=== PATIENT | female | born 2005 | race Two or more races ===

== ENCOUNTER → 2023-05-31 | Emergency (ER) | payer SELFPAY ==
[~2023-05-31] MED LIST: NA CHLORIDE 0.9% 1,000 ML ONE
[2023-05-31 11:38] LABS: Specific Gravity 1.007 (1.005-1.030)
[2023-05-31 11:40] LABS: Hematocrit 34.7 % (36.0-45.0); Lymphocytes % 16.7 % (15.3-44.8); MCV 85.4 fL (80-100); MPV 10.1 fL (7.6-11.3); Platelets 189 thou/uL (152-406); RBC Red Blood Cell Count 4.07 M/uL (3.86-4.86)
[2023-05-31 11:43] LABS: Specific Gravity 1.006 (1.005-1.030); Urine Bacteria <20 /HPF (<20); Urine Bilirubin NEGATIVE (Negative); Urine Blood 3+ (OVER) (Negative); Urine Clarity Turbid (Clear); Urine Color Colorless (Yellow); Urine Glucose NEGATIVE (Negative); Urine Protein NEGATIVE (Negative); Urine RBC >50 /HPF (None Seen); Urine Urobilinogen Normal (Normal)
--- NOTE | 2023-05-31 12:00 | RAD REPORT ---
EXAM DESCRIPTION: US - Transvaginal OB - 05/31/2023 11:43 am CLINICAL HISTORY: Abd pain;Vaginal bleeding COMPARISON: <Comparisons> FINDINGS: There is a large oblong gestational sac within the uterus. Soft tissue structure within th e sac could be a pole measuring 9 mm (6 weeks 6 days gestational age). However, no embryonic ca rdiac is confirmed despite prolong sonographic evaluation. Internal os appears to demonstrate some ev idence of funneling. The findings suggest inevitable spontaneous . Ovaries and maternal adnexa not well assessed due to patient discomfort.
[2023-05-31 12:05] LABS: Potassium 3.2 mEq/L (3.5-5.1)
--- NOTE | 2023-05-31 13:04 | EDPHYS ---
Physician Documentation [facility] Name: Christal Thakkar Age: 18 yrs Sex: Female : 2005 Arrival Date: 05/31/2023 Time: 11:02 Bed 13 Private MD: ED Physician Jake Jung HPI: 05/31 12:59 This 18 yrs old Female presents to ER via Ambulatory with complaints of Preg-17wks rn 1day, Abdominal Pain, Vaginal Bleeding. 12:59 The patient presents with vaginal bleeding that is light, with no clots. rn 12:59 Onset: The symptoms/episode began/occurred this morning. Modifying factors: The rn symptoms are alleviated by nothing, the symptoms are aggravated by nothing. Associated signs and symptoms: Pertinent positives: vaginal bleeding, Pertinent negatives: fever. Severity of symptoms: At their worst the symptoms were mild, in the emergency department the symptoms are unchanged. The patient has not experienced similar symptoms in the past. Patient reports lower abdominal cramping and vaginal bleeding that began this morning. Patient thinks she is approximately 17 weeks by dates. Has not seen OB doctor or had ultrasound this . This is first . No trauma. No urinary symptoms.. RELOCATION SERVICES SPECIALIST: 11:14 1, Full Term 0, Premature 0, 0, Living 0, LMP 01/31/2023, mb9 unknown Historical: - Allergies: 11:13 NKA; mb9 - Home Meds: 11:13 None [Active]; mb9 - PMHx: 11:13 Herpes simplex; mb9 - PSHx: 11:13 None; mb9 - Immunization history:: Adult Immunizations up to date. - Social history:: Smoking status: Patient denies any tobacco usage or history of. - Family history:: not pertinent. - Hospitalizations: : No recent hospitalization is reported. ROS: 12:59 Constitutional: Negative for fever, chills, and weight loss, Cardiovascular: Negative rn for chest pain, palpitations, and edema, Respiratory: Negative for shortness of breath, cough, wheezing, and pleuritic chest pain, Abdomen/GI: Positive for lower abdominal cramps Back: Negative for injury and pain, : Positive for vaginal bleeding Exam: 12:59 Constitutional: This is a well developed, well nourished patient who is awake, alert, rn and in no acute distress. Cardiovascular: Regular rate and rhythm. No pulse deficits. Respiratory: No increased work of breathing, no retractions or nasal flaring. Abdomen/GI: Soft, non-tender Vital Signs: 11:12 BP 126 / 87; Pulse 105; Resp 19; Temp 98.2(O); Pulse Ox 100% ; Weight 48.08 kg; Height mb9 5 ft. 3 in. ; 12:12 BP 109 / 74; Pulse 95; Resp 16; Pulse Ox 100% on R/A; mb9 11:12 Body Mass Index 18.78 (48.08 kg, 160.02 cm) mb9 MDM: 11:16 Patient medically screened. rn 12:59 Differential diagnosis: ectopic , nonspecific abdominal pain, urinary tract rn infection, miscarriage. Data reviewed: vital signs, nurses notes, lab test result(s), radiologic studies, ultrasound, and as a result, I will discharge patient. Counseling: I had a detailed discussion with the patient and/or guardian regarding the historical points, exam findings, and any diagnostic results supporting the discharge/admit diagnosis, lab results, radiology results, the need for outpatient follow up, to return to the emergency department if symptoms worsen or persist or if there are any questions or concerns that arise at home. Special discussion: I discussed with the patient/guardian in detail that at this point there is no indication for admission to the hospital. It is understood, however, that if the symptoms persist or worsen the patient needs to return immediately for re-evaluation. ED course: Rh-, RhoGAM ordered. Possible either early and her dates are wrong or this is going to end is a miscarriage given slightly open os and new vaginal bleeding. Recommend repeat beta quant in 48 hours and reassessment. I have personally reviewed all of the results, including but not limited to blood tests and imaging deemed necessary to safely discharge this patient at this time. All results given to and printed out for patient. I personally went over all the results with the patient and answered all questions. Patient will follow-up with PCP and or specialist as discussed. Return precautions given and understood.. 05/31 11:17 Order name: Abo/rh Typing rn 05/31 12:50 Order name: Antibody Screen [facility] 05/31 12:49 Order name: Fetalscreen [facility] 05/31 12:49 Order name: Cord Rh type [facility] 05/31 11:17 Order name: Basic Metabolic Panel; Complete Time: 12:07 rn 05/31 11:17 Order name: CBC with Diff; Complete Time: 11:51 rn 05/31 11:17 Order name: Test, Urine; Complete Time: 11:51 rn 05/31 11:17 Order name: Quantitative Hcg; Complete Time: 12:07 rn 05/31 11:17 Order name: Urinalysis w/ reflexes; Complete Time: 11:51 rn 05/31 12:21 Order name: ABO/RH no charge; Complete Time: 12:22 EDMI 05/31 12:46 Order name: Bb Add On bd 05/31 12:49 Order name: Rh Typing [facility] 05/31 12:50 Order name: Rhogam [facility] 05/31 11:42 Order name: Transvaginal OB; Complete Time: 12:07 EDMI 05/31 11:17 Order name: IV Saline Lock; Complete Time: 11:17 rn 05/31 11:17 Order name: Labs collected and sent; Complete Time: 11:17 rn 05/31 11:17 Order name: NPO; Complete Time: 11:17 rn Administered Medications: 13:45 Drug: Rho D Immune Globulin IM 300 mcg IM once Route: IM; Site: left gluteus; mb9 Disposition Summary: 05/31/23 13:03 Discharge Ordered Notes: Location: Home rn Problem: new rn Symptoms: are unchanged rn Condition: Stable rn Diagnosis - Threatened rn Followup: rn - With: Private Physician - When: As needed - Reason: Recheck today's complaints, Re-evaluation by your physician Discharge Instructions: - Discharge Summary Sheet rn - Threatened Miscarriage rn - Vaginal Bleeding During , First Trimester rn Forms: - Medication Reconciliation Form rn - Thank You Letter rn - Antibiotic television journalist - Prescription Opioid Use rn - Patient Portal Instructions rn - Leadership Thank You Letter rn Signatures: Dispatcher [employer] Jake Church MD MD rn Breneman, Emily Knight RN RN mb9 Corrections: (The following items were deleted from the chart) 11:42 11:17 OB Limited+US.RAD.BRZ ordered. [facility]
--- NOTE | 2023-05-31 13:04 | ER ---
Nurse's Notes [facility] Name: Christal Thakkar Age: 18 yrs Sex: Female : 2005 Arrival Date: 05/31/2023 Time: 11:02 Bed 13 Private MD: Diagnosis: Threatened Presentation: 05/31 11:12 Chief complaint: Patient states: "Around 5 am today, I started having cramping in my mb9 lower abdomen. At 0900, I started having dark red bleeding with clots. I've gone through 2 pads since 9am. I was supposed to go to my 1st ever OB appointment yesterday and it got cancelled.". Coronavirus screen: At this time, the client does not indicate any symptoms associated with coronavirus-19. Ebola Screen: No symptoms or risks identified at this time. Initial Sepsis Screen: Does the patient meet any 2 criteria? No. Patient's initial sepsis screen is negative. Does the patient have a suspected source of infection? No. Patient's initial sepsis screen is negative. Risk Assessment: Do you want to hurt yourself or someone else? Patient reports no desire to harm self or others. Onset of symptoms was May 31, 2023. 11:12 Acuity: SAPNA 3 mb9 11:12 Method Of Arrival: Ambulatory mb9 Triage Assessment: 11:15 General: Appears in no apparent distress. Behavior is calm, cooperative. Pain: mb9 Complains of pain in abdomen Pain radiates to pelvis. EENT: No signs and/or symptoms were reported regarding the EENT system. Neuro: Nagel Agitation-Sedation Scale (RASS): 0 - Alert and Calm Level of Consciousness is awake, alert, obeys commands, Oriented to person, place, time, situation, Appropriate for age. Cardiovascular: Patient's skin is warm and dry. Rhythm is sinus tachycardia. Respiratory: Airway is patent Respiratory effort is even, unlabored, Respiratory pattern is regular, symmetrical. GI: Abdomen is flat, non-distended, Bowel sounds present X 4 quads. Abd is soft and non tender X 4 quads. GI: Patient currently denies nausea, vomiting. : Reports vaginal bleeding that is with clots, heavy flow. Derm: Skin is pink, warm \\T\\ dry. Musculoskeletal: Range of motion: intact in all extremities. GANG BOSS: 11:14 1, Full Term 0, Premature 0, 0, Living 0, LMP 01/31/2023, mb9 unknown Historical: - Allergies: 11:13 NKA; mb9 - Home Meds: 11:13 None [Active]; mb9 - PMHx: 11:13 Herpes simplex; mb9 - PSHx: 11:13 None; mb9 - Immunization history:: Adult Immunizations up to date. - Social history:: Smoking status: Patient denies any tobacco usage or history of. - Family history:: not pertinent. - Hospitalizations: : No recent hospitalization is reported. Screenin:15 [facility] ED Fall Risk Assessment (Adult) History of falling in the last 3 months, mb9 including since admission No falls in past 3 months (0 pts) Confusion or Disorientation No (0 pts) Intoxicated or Sedated No (0 pts) Impaired Gait No (0 pts) Mobility Assist Device Used No (0 pt) Altered Elimination No (0 pt) Score/Fall Risk Level 0 - 2 = Low Risk Oriented to surroundings, Maintained a safe environment, Educated pt \\T\\ family on fall prevention, incl call for assistance when getting out of bed. Abuse screen: Denies threats or abuse. Nutritional screening: No deficits noted. Tuberculosis screening: No symptoms or risk factors identified. Assessment: 11:27 Reassessment: see triage assessment. mb9 11:31 Reassessment: pt taken to ultrasound via wheelchair. mb9 12:12 Reassessment: No changes from previously documented assessment. Patient and/or family mb9 updated on plan of care and expected duration. Pain level reassessed. Patient is alert, oriented x 3, equal unlabored respirations, skin warm/dry/pink. 12:28 Reassessment: RhoGam order faxed to lab. mb9 Vital Signs: 11:12 BP 126 / 87; Pulse 105; Resp 19; Temp 98.2(O); Pulse Ox 100% ; Weight 48.08 kg; Height mb9 5 ft. 3 in. ; 12:12 BP 109 / 74; Pulse 95; Resp 16; Pulse Ox 100% on R/A; mb9 11:12 Body Mass Index 18.78 (48.08 kg, 160.02 cm) mb9 ED Course: 11:05 Patient arrived in ED. mg5 11:11 Breneman, Abigail, RN is Primary Nurse. mb9 11:11 Arm band placed on. mb9 11:13 Triage completed. mb9 11:14 Placed in gown. Bed in low position. Call light in reach. Side rails up X 1. Client mb9 placed on continuous cardiac and pulse oximetry monitoring. NIBP monitoring applied. potline monitor on. 11:16 Jake Jung MD is Attending Physician. rn 11:17 Inserted saline lock: 20 gauge in right antecubital area, using aseptic technique. bc6 Blood collected. 11:19 Abo/rh Typing Sent. bc6 11:19 Basic Metabolic Panel Sent. bc6 11:19 CBC with Diff Sent. bc6 11:19 Quantitative Hcg Sent. bc6 11:43 Transvaginal OB In Process Unspecified. EDMS 12:20 No provider procedures requiring assistance completed. IV discontinued, intact, mb9 bleeding controlled, No redness/swelling at site. Pressure dressing applied. Administered Medications: 13:45 Drug: Rho D Immune Globulin IM 300 mcg IM once Route: IM; Site: left gluteus; mb9 Medication: 11:14 VIS not applicable for this client. mb9 Outcome: 13:03 Discharge ordered by . rn 13:54 Discharged to home ambulatory, with family, mb9 13:54 Condition: stable 13:54 Discharge instructions given to patient, Instructed on discharge instructions, follow up and referral plans. Demonstrated understanding of instructions, follow-up care, 13:54 Patient left the ED. mb9 Signatures: Dispatcher [employer] EDMS Jake Jung MD MD rn Breneman, Mary Beth, RN RN mb9 Rekha Zayas 6 Vickie Trevino mg5
[2023-05-31 15:25] VITALS: BP 109/74; TEMP 98.2; O2SAT 100
== END ==
LOC: ER 11:02
DX: O20.0 Threatened abortion (principal)
CPT/HCPCS: 36415; 76817; 80048; 81001; 81025; 84702; 85025; 86850; 86900; 86901; 96372; 99285; J2790

== ENCOUNTER → 2023-06-01 | Emergency (ER) | payer SELFPAY ==
[2023-06-01 06:28] LABS: Hematocrit 32.8 % (36.0-45.0); Lymphocytes % 6.3 % (15.3-44.8); MCV 85.1 fL (80-100); MPV 9.9 fL (7.6-11.3); Platelets 182 thou/uL (152-406); RBC Red Blood Cell Count 3.86 M/uL (3.86-4.86)
[2023-06-01 07:02] LABS: Calcium Oxalate Crystals- Ur Few /HPF (None Seen); Specific Gravity 1.026 (1.005-1.030); Urine Bacteria <20 /HPF (<20); Urine Bilirubin NEGATIVE (Negative); Urine Blood 3+ (OVER) (Negative); Urine Clarity Extremely Turbid (Clear); Urine Color Yellow (Yellow); Urine Glucose NEGATIVE (Negative); Urine Mucus 3+ /HPF (None Seen); Urine Protein 1+ (Negative); Urine RBC >50 /HPF (None Seen); Urine Urobilinogen Normal (Normal); Urine pH 5.5 (5.0-7.0)
[2023-06-01 07:04] LABS: Albumin 3.9 g/dL (3.4-5.0); Potassium 3.6 mEq/L (3.5-5.1); Protein, Total 7.5 g/dL (6.4-8.2)
[2023-06-01 08:05] LABS: Blood Morphology Comment NOT SEEN (NOT SEEN); Platelet Estimate ADEQ; White Blood Cell Scan OK (OK)
--- NOTE | 2023-06-01 08:22 | RAD REPORT ---
EXAM DESCRIPTION: US - Transvaginal OB - 06/01/2023 6:32 am CLINICAL HISTORY: VAGINAL BLEEDING COMPARISON: Transvaginal OB dated 05/31/2023 TECHNIQUE: Sonographic grayscale and color flow images of a first-trimester were obtained through approach. FINDINGS: Gestational sac and presumed pole are no longer visualized. No endometrial fluid is visualized. Cervix appears closed. . No myometrial abnormalities. Maternal ovaries are unremarkable, demonstrating normal peripheral follicles. Right ovary measures 2. 9 x 1.8 x 2.1 cm. Left ovary measures 3.2 x 1.6 x 1.9 cm. Trace fluid in the cul-de-sac, stable. . IMPRESSION: 1. Gestational sac and presumed pole are no longer visualized, findings suggest ab ortion completion. 2. No other adnexal abnormalities. Findings were communicated to Dr. Sprague by the petroleum refining equipment operator at the time of the exam completion.
--- NOTE | 2023-06-01 08:46 | EDPHYS ---
Physician Documentation [facility] Name: Christal Thakkar Age: 18 yrs Sex: Female : 2005 Arrival Date: 06/01/2023 Time: 05:23 Bed 20 Private MD: ED Physician Jake Jung HPI: 06/01 06:02 This 18 yrs old Female presents to ER via Ambulatory with complaints of ec2 Vaginal Bleeding, Pelvic Pain, Nausea, PT states she thinks she is 17 wks gestation. 06:02 patient arrives today for evaluation of vaginal bleeding. Patient is approximately 17 ec2 weeks , was seen yesterday. States that she is been having persistent vaginal bleeding since yesterday. States that she is having some occasional abdominal cramping as well. Patient states that she is also having significant clotting. Of note patient was here yesterday, noted to have ultrasound that had possible early pole versus spontaneous . Hemoglobin was 11.7. Patient is O- and received RhoGAM yesterday. hCG was obtained and showed a value 2020. . COMMUNICATIONS PROJECT LEAD: 05:54 Verified jb4 Historical: - Allergies: 05:54 NKA; jb4 - PMHx: 05:54 Herpes simplex; jb4 - PSHx: 05:54 None; jb4 - Immunization history:: Adult Immunizations up to date. - Social history:: Smoking status: Patient denies any tobacco usage or history of. ROS: 06:49 Constitutional: as per hpi ec2 Exam: 06:49 Constitutional: GEN: NAD Head: atraumatic Eyes: EOMI Ears: External ears are ec2 normal. CV: regular rate LUNGS: no respiratory distress ABD: non-distended SKIN: no evidence of rashes MSK: no evidence of trauma NEURO: moves all extremities equally Vital Signs: 05:51 BP 79 / 69; Pulse 88; Resp 16; Temp 97.5(TE); Pulse Ox 100% on R/A; Weight 47.17 kg jb4 (R); Height 5 ft. 3 in. (R); 06:56 BP 106 / 67; Pulse 94; ec2 08:01 BP 112 / 75; Pulse 87; Resp 16; Pulse Ox 98% on R/A; iw 08:44 BP 100 / 55; iw 09:12 BP 100 / 54; Pulse 89; Resp 16; Pulse Ox 97% on R/A; iw 05:51 Body Mass Index 18.42 (47.17 kg, 160.02 cm) jb4 Rosita Coma Score: 06:24 Eye Response: spontaneous(4). Motor Response: obeys commands(6). Verbal Response: la4 oriented(5). Total: 15. MDM: 05:50 Patient medically screened. ec2 06:49 Data reviewed: vital signs. ED course: Patient arrives today for evaluation of vaginal ec2 bleeding. Examination remarkable for well-appearing nontoxic individual initial blood pressure is hypotensive. Will obtain lab work, repeat ultrasound, hCG. Currently considered anemia, miscarriage.. 07:17 ED course: Patient signed out to oncoming physician with pending ultrasonography. . ec2 08:44 Differential diagnosis: Counseling: I had a detailed discussion with the patient and/arts administrator guardian regarding the historical points, exam findings, and any diagnostic results supporting the discharge/admit diagnosis, lab results, radiology results, the need for outpatient follow up, to return to the emergency department if symptoms worsen or persist or if there are any questions or concerns that arise at home. ED course: Beta quantitative downtrending and ultrasound does not show anything intrauterine. Most likely completed spontaneous .. 06/01 05:52 Order name: CBC with Diff; Complete Time: 08:23 ec2 06/01 05:52 Order name: CMP; Complete Time: 07:12 ec2 06/01 05:52 Order name: HCG-Quantitative; Complete Time: 07:12 ec2 06/01 05:52 Order name: Type And Screen; Complete Time: 08:54 ec2 06/01 05:52 Order name: UAM; Complete Time: 07:12 ec2 06/01 08:06 Order name: CBC Smear Scan; Complete Time: 08:23 EDMS 06/01 08:19 Order name: Antibody Identification; Complete Time: 08:54 EDMS 06/01 05:52 Order name: Transvaginal OB US; Complete Time: 08:23 ec2 Administered Medications: 06:19 Drug: NS 0.9% IV 2000 ml IV at 1 bolus Per protocol; 1000 mL bolus Route: IV; Rate: 1 la4 bolus; Site: right forearm; Disposition Summary: 06/01/23 08:45 Discharge Ordered Notes: Location: Home rn Problem: new rn Symptoms: have improved rn Condition: Stable rn Diagnosis - Complete or unspecified spontaneous without complication rn Followup: rn - With: Private Physician - When: As needed - Reason: Recheck today's complaints, Re-evaluation by your physician Discharge Instructions: - Discharge Summary Sheet rn - Miscarriage rn Forms: - Medication Reconciliation Form rn - Thank You Letter rn - Antibiotic intern product marketing manager - Prescription Opioid Use rn - Patient Portal Instructions rn - Leadership Thank You Letter rn Signatures: Dispatcher [employer] Jake Church MD MD rn Bryson, James, RN RN jb4 Kamar Sprague MD MD ec2 Myriam Luke RN RN la4 Corrections: (The following items were deleted from the chart) 06:50 06:02 Of note patient was here yesterday, noted to have ultrasound that had possible ec2 early pole versus spontaneous . Hemoglobin was 11.7. Patient is O- and received RhoGAM yesterday. hCG was obtained and showed a value 2020. . ec2
--- NOTE | 2023-06-01 08:46 | ER ---
Nurse's Notes [facility] Name: Christal Thakkar Age: 18 yrs Sex: Female : 2005 Arrival Date: 06/01/2023 Time: 05:23 Bed 20 Private MD: Diagnosis: Complete or unspecified spontaneous without complication Presentation: 06/01 05:51 Chief complaint: Patient states: I was here yesterday around 5 am. I have not stopped jb4 bleeding since. I have filled 5 big pads and 3-4 smaller pads. I have had 5-6 clots pass. I was told to come back in 2 days but the pain was too bad. Coronavirus screen: At this time, the client does not indicate any symptoms associated with coronavirus-19. Ebola Screen: No symptoms or risks identified at this time. Initial Sepsis Screen: Does the patient meet any 2 criteria? No. Patient's initial sepsis screen is negative. Does the patient have a suspected source of infection? No. Patient's initial sepsis screen is negative. Risk Assessment: Do you want to hurt yourself or someone else? Patient reports no desire to harm self or others. Onset of symptoms was May 31, 2023. 05:51 Method Of Arrival: Ambulatory jb4 05:51 Acuity: SAPNA 3 jb4 Triage Assessment: 09:13 General: Behavior is calm. 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 - Social history:: Smoking status: Patient denies any tobacco usage or history of. Screenin:42 [facility] ED Fall Risk Assessment (Adult) History of falling in the last 3 months, nw1 including since admission No falls in past 3 months (0 pts) Confusion or Disorientation No (0 pts) Intoxicated or Sedated No (0 pts) Impaired Gait No (0 pts) Mobility Assist Device Used No (0 pt) Altered Elimination No (0 pt) Score/Fall Risk Level 0 - 2 = Low Risk Oriented to surroundings, Maintained a safe environment, Educated pt \T\ family on fall prevention, incl call for assistance when getting out of bed, Assessed \T\ reinforced patient's understanding of fall precautions, Provided non-skid footwear, Hourly rounding (assess needs \T\ fall precautionary measures) done. Abuse screen: Denies threats or abuse. Denies injuries from another. Nutritional screening: No deficits noted. Tuberculosis screening: No symptoms or risk factors identified. Assessment: 06:24 General: Appears pale and weak. Pain: Complains of pain in suprapubic area, right la4 inguinal area and left inguinal area Pain does not radiate. Pain currently is 8 out of 10 on a pain scale. Quality of pain is described as crampy. Neuro: Nagel Agitation-Sedation Scale (RASS): 0 - Alert and Calm Level of Consciousness is awake, alert, obeys commands, Oriented to person, place, time, situation, Appropriate for age. Cardiovascular: Heart tones S1 S2 Capillary refill < 3 seconds is brisk Patient's skin is warm and dry. Pulses are all present. Edema is absent. Rhythm is regular. Respiratory: No deficits noted. Airway is patent Respiratory effort is even, unlabored, Respiratory pattern is regular, symmetrical, Breath sounds are clear bilaterally. GI: Abdomen is flat, non-distended, Bowel sounds present X 4 quads. Abd is soft Abdomen is tender to palpation in suprapubic area. : Reports vaginal bleeding that is with clots, heavy flow reports soaking through more than 3 heavy flow pads in the 5 hours. States that her pain has only become worse and at times it feels as if she is having contractions as the pain comes and goes. : Genitalia appear normal Blood noted at vaginal opening. 08:01 Reassessment: Patient appears in no apparent distress at this time. Patient and/or iw family updated on plan of care and expected duration. Pain level reassessed. Patient is alert, oriented x 3, equal unlabored respirations, skin warm/dry/pink. Patient states feeling better. 09:12 Reassessment: Patient appears in no apparent distress at this time. Patient and/or iw family updated on plan of care and expected duration. Pain level reassessed. Patient is alert, oriented x 3, equal unlabored respirations, skin warm/dry/pink. Vital Signs: 05:51 BP 79 / 69; Pulse 88; Resp 16; Temp 97.5(TE); Pulse Ox 100% on R/A; Weight 47.17 kg jb4 (R); Height 5 ft. 3 in. (R); 06:56 BP 106 / 67; Pulse 94; ec2 08:01 BP 112 / 75; Pulse 87; Resp 16; Pulse Ox 98% on R/A; iw 08:44 BP 100 / 55; iw 09:12 BP 100 / 54; Pulse 89; Resp 16; Pulse Ox 97% on R/A; iw 05:51 Body Mass Index 18.42 (47.17 kg, 160.02 cm) jb4 Vitals: 06:24 Cardiac Rhythm Assessment Regular Sinus rhythm. la4 Rosita Coma Score: 06:24 Eye Response: spontaneous(4). Motor Response: obeys commands(6). Verbal Response: la4 oriented(5). Total: 15. ED Course: 05:27 Patient arrived in ED. jj6 05:50 Kamar Sprague MD is Attending Physician. ec2 05:54 Triage completed. jb4 05:54 Arm band placed on. jb4 06:14 Transvaginal OB US Sent. la4 06:14 HCG-Quantitative Sent. la4 06:15 CMP Sent. la4 06:15 CBC with Diff Sent. la4 06:15 Type And Screen Sent. la4 06:24 No provider procedures requiring assistance completed. la4 06:34 Transvaginal OB US In Process Unspecified. EDMS 06:42 Brandy Springer, RN is Primary Nurse. nw1 06:42 Patient has correct armband on for positive identification. Placed in gown. Bed in low nw1 position. Call light in reach. Side rails up X2. Provided Education on: POC. Door closed. Warm blanket given. 06:42 No provider procedures requiring assistance completed. Inserted saline lock: 20 gauge nw1 in right forearm, using aseptic technique. Blood collected. 06:57 UAM Sent. nw1 06:57 Type And Screen Sent. nw1 06:57 HCG-Quantitative Sent. nw1 06:57 CMP Sent. nw1 07:12 Attending Physician role handed off by Kamar Sprague MD rn 07:12 Jake Jung MD is Attending Physician. rn 09:12 IV discontinued, intact, bleeding controlled, No redness/swelling at site. Pressure iw dressing applied. Administered Medications: 06:19 Drug: NS 0.9% IV 2000 ml IV at 1 bolus Per protocol; 1000 mL bolus Route: IV; Rate: 1 la4 bolus; Site: right forearm; Medication: 06:42 VIS not applicable for this client. nw1 Outcome: 08:45 Discharge ordered by . rn 09:12 Discharged to home ambulatory, iw 09:12 Condition: good 09:12 Discharge instructions given to patient, family, Instructed on discharge instructions, follow up and referral plans. Demonstrated understanding of instructions, follow-up care, 09:13 Patient left the ED. iw Signatures: Dispatcher [employer] Tonja Worley, RN RN iw Jake Jung MD MD rn Bryson, James, RN RN jb4 Gisela Penningtonj6 Kamar Sprague MD MD ec2 Myriam Luke RN RN la4 Brandy Springer RN RN nw1
[2023-06-01 09:20] VITALS: TEMP 97.5
[2023-06-01 09:35] VITALS: BP 100/54; O2SAT 97
== END ==
LOC: ER 05:23
DX: O03.9 Complete or unspecified spontaneous abortion without complication (principal)
CPT/HCPCS: 36415; 76817; 80053; 81001; 84702; 85025; 86850; 86870; 86900; 86901

== ENCOUNTER → 2023-06-08 | Emergency (ER) | payer SELFPAY ==
--- NOTE | 2023-06-08 11:59 | RAD REPORT ---
EXAM DESCRIPTION: US - Transvaginal OB - 06/08/2023 11:41 am CLINICAL HISTORY: with vaginal bleeding COMPARISON: June 01, 2023 FINDINGS: The uterus is retroverted. Endometrial stripe is heterogeneous measuring 1.3 centimeters. Mildly increased vascularity A gestational sac is not seen. A fibroid is not visualized. Ovaries are normal in size and echotexture No significant free fluid IMPRESSION: Endometrial stripe is heterogeneous measuring 1.3 centimeters. It contains mildly increa sed vascularity. This may indicate retained products of conception
--- NOTE | 2023-06-08 12:43 | ER ---
Nurse's Notes [facility] Name: Christal Thakkar Age: 18 yrs Sex: Female : 2005 Arrival Date: 06/08/2023 Time: 10:56 Bed DX3 Private MD: Diagnosis: Incomplete spontaneous without complication Presentation: 06/08 11:01 Chief complaint: Patient states: she recently had a miscarriage approx 7 days ago, and ap3 is here to the ED for a followup to make sure she "passed everything". Coronavirus screen: At this time, the client does not indicate any symptoms associated with coronavirus-19. Ebola Screen: No symptoms or risks identified at this time. Initial Sepsis Screen: Does the patient meet any 2 criteria? No. Patient's initial sepsis screen is negative. Does the patient have a suspected source of infection? Yes: Other: recent miscarriage. Risk Assessment: Do you want to hurt yourself or someone else? Patient reports no desire to harm self or others. Onset of symptoms is unknown. 11:01 Method Of Arrival: Ambulatory ap3 11:01 Acuity: SAPNA 3 ap3 Triage Assessment: 11:04 General: Appears in no apparent distress. Behavior is calm, cooperative, appropriate ap3 for age. Pain: Complains of pain in pelvis. Neuro: Level of Consciousness is awake, alert, obeys commands, Oriented to person, place, time, situation, Appropriate for age. Cardiovascular: Patient's skin is warm and dry. Respiratory: Airway is patent Respiratory effort is even, unlabored, Respiratory pattern is regular, symmetrical. 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 Flu vaccine is up to date. - Social history:: Smoking status: Patient denies any tobacco usage or history of. - Family history:: not pertinent. - Hospitalizations: : No recent hospitalization is reported. Screenin:04 [facility] ED Fall Risk Assessment (Adult) History of falling in the last 3 months, ap3 including since admission No falls in past 3 months (0 pts). Abuse screen: Denies threats or abuse. Nutritional screening: No deficits noted. Tuberculosis screening: No symptoms or risk factors identified. Assessment: 12:13 Reassessment: Patient appears in no apparent distress at this time. Patient and/or as6 family updated on plan of care and expected duration. Pain level reassessed. Patient is alert, oriented x 3, equal unlabored respirations, skin warm/dry/pink. Vital Signs: 11:01 BP 111 / 75; Pulse 88; Resp 16; Temp 98.2; Pulse Ox 100% ; Weight 45.36 kg; Height 5 ap3 ft. 3 in. ; 12:48 BP 106 / 65; Pulse 70; Resp 18; Pulse Ox 100% ; as6 11:01 Body Mass Index 17.71 (45.36 kg, 160.02 cm) ap3 ED Course: 10:59 Patient arrived in ED. gm2 11:00 Jake Jung MD is Attending Physician. rn 11:03 Triage completed. ap3 11:04 Arm band placed on right wrist. ap3 11:42 US Transvaginal Ob In Process Unspecified. EDMS 12:13 Sascha Becker, RN is Primary Nurse. as6 12:36 Bed in low position. Call light in reach. Provided Education on: follow up. as6 12:36 No provider procedures requiring assistance completed. Patient did not have IV access as6 during this emergency room visit. Administered Medications: No medications were administered Medication: 12:36 VIS not applicable for this client. as6 Outcome: 12:37 Discharged to home ambulatory, with family, as6 12:37 Condition: stable 12:42 Discharge ordered by . rn 12:48 Discharge instructions given to patient, Instructed on discharge instructions, follow as6 up and referral plans. Demonstrated understanding of instructions, follow-up care, 12:50 Patient left the ED. as6 Signatures: Dispatcher [employer] EDMS Jake Jung MD MD rn Prokisch, Amanda, RN RN ap3 Sascha Becker, CARLOS GONZALEZ as6 Luz Marina Laureano gm2
--- NOTE | 2023-06-08 12:43 | EDPHYS ---
Physician Documentation [facility] Name: Christal Thakkar Age: 18 yrs Sex: Female : 2005 Arrival Date: 06/08/2023 Time: 10:56 Bed DX3 Private MD: ED Physician Jake Jung HPI: 06/08 11:20 This 18 yrs old Female presents to ER via Ambulatory with complaints of Pelvic Problem. rn 11:20 The patient presents to the emergency department with Recent miscarriage. The patient rn has not experienced similar symptoms in the past. The patient has been recently seen by a physician:. Patient reports recently diagnosed with miscarriage after 2 ER visits. Overall doing better, bleeding is tapering off, no vaginal discharge or foul-smelling discharge. Here today to make sure that everything has come out. Denies any abdominal pain. No fever. Overall feels much better.. 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 Flu vaccine is up to date. - Social history:: Smoking status: Patient denies any tobacco usage or history of. - Family history:: not pertinent. - Hospitalizations: : No recent hospitalization is reported. ROS: 11:20 Constitutional: Negative for fever, chills, and weight loss, Cardiovascular: Negative rn for chest pain, palpitations, and edema, Respiratory: Negative for shortness of breath, cough, wheezing, and pleuritic chest pain, Abdomen/GI: Negative for abdominal pain, nausea, vomiting, diarrhea, and constipation, : Negative for injury, bleeding, discharge, and swelling, MS/Extremity: Negative for injury and deformity, Skin: Negative for injury, rash, and discoloration, Neuro: Negative for headache, weakness, numbness, tingling, and seizure, Exam: 11:20 Constitutional: This is a well developed, well nourished patient who is awake, alert, rn and in no acute distress. Cardiovascular: Regular rate and rhythm. No pulse deficits. Respiratory: No increased work of breathing, no retractions or nasal flaring. Abdomen/GI: Soft, non-tender Vital Signs: 11:01 BP 111 / 75; Pulse 88; Resp 16; Temp 98.2; Pulse Ox 100% ; Weight 45.36 kg; Height 5 ap3 ft. 3 in. ; 12:48 BP 106 / 65; Pulse 70; Resp 18; Pulse Ox 100% ; as6 11:01 Body Mass Index 17.71 (45.36 kg, 160.02 cm) ap3 MDM: 11:00 Patient medically screened. rn 12:41 Differential diagnosis: Completing , retained products of conception. Data rn reviewed: vital signs, nurses notes, radiologic studies, ultrasound, and as a result, I will discharge patient. Counseling: I had a detailed discussion with the patient and/or guardian regarding the historical points, exam findings, and any diagnostic results supporting the discharge/admit diagnosis, radiology results, the need for outpatient follow up, to return to the emergency department if symptoms worsen or persist or if there are any questions or concerns that arise at home. Special discussion: I discussed with the patient/guardian in detail that at this point there is no indication for admission to the hospital. It is understood, however, that if the symptoms persist or worsen the patient needs to return immediately for re-evaluation. Based on the history and exam findings, there is no indication for further emergent testing or inpatient evaluation. I discussed with the patient/guardian the need to see the OB Gyne specialist for further evaluation of the symptoms. ED course: Ultrasound shows vascularity of uterus. No definitive retained products but radiologist states the vascularity could indicate products of conception. Patient however has improving symptoms with no abdominal pain no vaginal discharge and still passing some blood. Had long conversation with patient and mother and given clinical picture continues to improve and no definitive products on ultrasound, will give her a few more days and want her to get a repeat ultrasound to rule out products of conception. Understands return precautions and will discharge home.. 06/08 11:10 Order name: US Transvaginal Ob; Complete Time: 12:20 rn Administered Medications: No medications were administered Disposition Summary: 06/08/23 12:42 Discharge Ordered Notes: Location: Home rn Problem: new rn Symptoms: have improved rn Condition: Stable rn Diagnosis - Incomplete spontaneous without complication rn Followup: rn - With: Private Physician - When: As needed - Reason: Recheck today's complaints, Re-evaluation by your physician Discharge Instructions: - Discharge Summary Sheet rn - Incomplete Miscarriage rn - Miscarriage rn Forms: - Medication Reconciliation Form rn - Thank You Letter rn - Antibiotic banking attorney - Prescription Opioid Use rn - Patient Portal Instructions rn - Leadership Thank You Letter rn Signatures: Dispatcher [employer] Jake Church MD MD rn Prokisch, Amanda, RN RN ap3
[2023-06-08 13:49] VITALS: BP 106/65; TEMP 98.2; O2SAT 100
== END ==
LOC: ER 10:56
DX: O03.4 Incomplete spontaneous abortion without complication (principal)
CPT/HCPCS: 76817; 99282

== ENCOUNTER → 2023-06-13 | Emergency (ER) | payer OTHER ==
[2023-06-13 10:17] LABS: Absolute Lymphocytes (CBC) 1.8 K/uL (0.7-4.9); Lymphocytes % 31.9 % (15.3-44.8); MCV 85.8 fL (80-100); MPV 9.2 fL (7.6-11.3); Platelets 236 thou/uL (152-406); RBC Red Blood Cell Count 3.73 M/uL (3.86-4.86)
[2023-06-13 10:39] LABS: Potassium 3.6 mEq/L (3.5-5.1)
[2023-06-13 10:57] LABS: Specific Gravity 1.027 (1.005-1.030); Urine Bilirubin NEGATIVE (Negative); Urine Blood Negative (Negative); Urine Clarity Clear (Clear); Urine Color Light-Yellow (Yellow); Urine Glucose NEGATIVE (Negative); Urine Protein NEGATIVE (Negative); Urine Urobilinogen Normal (Normal)
--- NOTE | 2023-06-13 11:14 | RAD REPORT ---
EXAM DESCRIPTION: US - Transvaginal Study Probe - 06/13/2023 10:31 am CLINICAL HISTORY: with vaginal bleeding COMPARISON: June 08, 2023 FINDINGS: The uterus is retroverted and measures 7 x 5 x 6 cm. Endometrial stripe 1.3 centimeters. I t contains fluid. It is less heterogeneous than on the prior exam The ovaries are normal in size and echotexture. The right and left adnexa unremarkable No significant free fluid is seen. IMPRESSION: The endometrium is less heterogeneous than on the prior exam. This may indicate partial expulsion of retained products of conception
--- NOTE | 2023-06-13 12:11 | ER ---
Nurse's Notes [facility] Name: Christal Thakkar Age: 18 yrs Sex: Female : 2005 Arrival Date: 06/13/2023 Time: 09:34 Bed 9 Private MD: Diagnosis: Incomplete spontaneous without complication Presentation: 06/13 09:51 Chief complaint: Patient states: she recently miscarried and was instructed she may ap3 need a D\T\C. patient denies any pain at this time. Coronavirus screen: At this time, the client does not indicate any symptoms associated with coronavirus-19. Ebola Screen: No symptoms or risks identified at this time. Initial Sepsis Screen: Does the patient meet any 2 criteria? No. Patient's initial sepsis screen is negative. Does the patient have a suspected source of infection? Yes:. Risk Assessment: Do you want to hurt yourself or someone else? Patient reports no desire to harm self or others. Onset of symptoms is unknown. 09:51 Method Of Arrival: Ambulatory ap3 09:51 Acuity: SAPNA 3 ap3 Triage Assessment: 09:53 General: Appears in no apparent distress. Behavior is calm, cooperative, appropriate ap3 for age. Pain: Denies pain. Neuro: Level of Consciousness is awake, alert, obeys commands, Oriented to person, place, time, situation, Appropriate for age. Cardiovascular: Patient's skin is warm and dry. Respiratory: Airway is patent Respiratory effort is even, unlabored, Respiratory pattern is regular, symmetrical. : Reports vaginal bleeding that is brown. Historical: - Allergies: 09:52 NKA; ap3 - PMHx: 09:52 Herpes simplex; ap3 - Immunization history:: Adult Immunizations up to date. - Social history:: Smoking status: Patient denies any tobacco usage or history of. Screenin:53 [facility] ED Fall Risk Assessment (Adult) History of falling in the last 3 months, ap3 including since admission No falls in past 3 months (0 pts). Abuse screen: Denies threats or abuse. Nutritional screening: No deficits noted. Tuberculosis screening: No symptoms or risk factors identified. Assessment: 10:03 Reassessment: See triage assessment. nj1 10:36 Reassessment: Patient appears in no apparent distress at this time. Patient and/or nj1 family updated on plan of care and expected duration. Pain level reassessed. Patient is alert, oriented x 3, equal unlabored respirations, skin warm/dry/pink. 12:15 Reassessment: Patient appears in no apparent distress at this time. Patient and/or nj1 family updated on plan of care and expected duration. Pain level reassessed. Patient is alert, oriented x 3, equal unlabored respirations, skin warm/dry/pink. 13:41 Reassessment: Patient appears in no apparent distress at this time. Patient and/or nj1 family updated on plan of care and expected duration. Pain level reassessed. Patient is alert, oriented x 3, equal unlabored respirations, skin warm/dry/pink. Vital Signs: 09:51 BP 107 / 81; Pulse 88; Resp 17; Temp 98.7(O); Pulse Ox 99% ; Weight 45.36 kg; Height 5 ap3 ft. 3 in. ; Pain 0/10; 12:15 BP 111 / 84; Pulse 77; Resp 16; Pulse Ox 100% on R/A; nj1 13:41 BP 112 / 79; Pulse 66; Resp 16; Pulse Ox 97% on R/A; nj1 09:51 Body Mass Index 17.71 (45.36 kg, 160.02 cm) ap3 09:51 Pain Scale: Adult ap3 ED Course: 09:38 Patient arrived in ED. im 09:39 Sundar Olmos DO is Attending Physician. ms3 09:52 Triage completed. ap3 09:53 Arm band placed on right wrist. ap3 10:03 Sana Badillo, RN is Primary Nurse. nj1 10:03 Patient has correct armband on for positive identification. Bed in low position. Call nj1 light in reach. Provided Education on: fall precautions, call light. 10:10 Inserted saline lock: 22 gauge in right antecubital area, using aseptic technique. nj1 Blood collected. 10:25 Transvaginal Study Probe In Process Unspecified. EDMS 10:36 Urinalysis w/ reflexes Sent. nj1 12:17 Assist provider with pelvic exam: Performed by Sundar Olmos DO. nj1 13:02 initiated transfer to [facility]. bd 13:42 IV discontinued, intact, bleeding controlled. nj1 14:[address] Olmos,pt discharged home. bd Administered Medications: No medications were administered Medication: 13:42 VIS not applicable for this client. nj1 Outcome: 12:11 ER care complete, transfer ordered by MD. ms3 13:32 Discharge ordered by MD. ms3 13:41 Discharged to home ambulatory, with family, nj1 13:41 Condition: stable 13:41 Discharge instructions given to patient, Instructed on discharge instructions, follow up and referral plans. medication usage, Demonstrated understanding of instructions, follow-up care, medications, Prescriptions given X 1, 13:42 Patient left the ED. nj1 Signatures: Dispatcher [employer] EDMS Lesli Montelongo Amanda, RN RN ap3 Sundar Olmos DO DO ms3 Sana Badillo RN RN nj1 Malika Gerber
--- NOTE | 2023-06-13 12:11 | EDPHYS ---
Physician Documentation [facility] Name: Christal Thakkar Age: 18 yrs Sex: Female : 2005 Arrival Date: 06/13/2023 Time: 09:34 Bed 9 Private MD: ED Physician Sundar Olmos HPI: 06/13 12:05 This 18 yrs old Female presents to ER via Ambulatory with complaints of D\T\C. ms3 12:05 18-year-old female with past medical history of herpes simplex virus presents to the [facility] emergency department for miscarriage that occurred 3 days ago. Patient states she was seen in the emergency department and suggested to follow-up with obstetrics. Patient states at that time ultrasound showed retained products of conception. Patient states her last menstrual period was January 31, 2023. Patient states she is a G1, P0. Patient denies pain at this time. Patient denies any alleviating or inciting factors. Historical: - Allergies: 09:52 NKA; ap3 - PMHx: 09:52 Herpes simplex; ap3 - Immunization history:: Adult Immunizations up to date. - Social history:: Smoking status: Patient denies any tobacco usage or history of. ROS: 12:05 Constitutional: Negative for fever, and chills. Neck: Negative for injury, pain, and ms3 swelling, Cardiovascular: Negative for chest pain, and palpitations. Respiratory: Negative for shortness of breath, cough, wheezing, and pleuritic chest pain, Abdomen/GI: Negative for abdominal pain, nausea, vomiting, diarrhea, and constipation, MS/Extremity: Negative for injury and deformity, 12:05 : Positive for vaginal bleeding, 12:05 All other systems are negative, Exam: 12:05 Constitutional: This is a well developed, well nourished patient who is awake, alert, ms3 and in no acute distress. Head/Face: Normocephalic, atraumatic. Neck: Trachea midline, no cervical lymphadenopathy. Supple, full range of motion without nuchal rigidity, or vertebral point tenderness. No Meningismus. Chest/axilla: Normal chest wall appearance and motion. Nontender with no deformity. Cardiovascular: Regular rate and rhythm with a normal S1 and S2. No gallops, murmurs, or rubs. Normal PMI, no JVD. No pulse deficits. Respiratory: Lungs have equal breath sounds bilaterally, clear to auscultation and percussion. No rales, rhonchi or wheezes noted. No increased work of breathing, no retractions or nasal flaring. Abdomen/GI: Soft, non-tender, with normal bowel sounds. No distension or tympany. No guarding or rebound. No evidence of tenderness throughout. Skin: Warm, dry with normal turgor. Normal color with no rashes, no lesions, and no evidence of cellulitis. MS/ Extremity: Pulses equal, no cyanosis. Neurovascular intact. Full, normal range of motion. 12:57 : Pelvic Exam: External exam: is normal, Speculum exam: no bleeding is noted, ms3 bimanual exam reveals normal findings, no cervical motion tenderness, Vital Signs: 09:51 BP 107 / 81; Pulse 88; Resp 17; Temp 98.7(O); Pulse Ox 99% ; Weight 45.36 kg; Height 5 ap3 ft. 3 in. ; Pain 0/10; 12:15 BP 111 / 84; Pulse 77; Resp 16; Pulse Ox 100% on R/A; nj1 13:41 BP 112 / 79; Pulse 66; Resp 16; Pulse Ox 97% on R/A; nj1 09:51 Body Mass Index 17.71 (45.36 kg, 160.02 cm) ap3 09:51 Pain Scale: Adult ap3 MDM: 09:54 Patient medically screened. ms3 12:05 Differential diagnosis: complete Ab, retained Ab, missed Ab. ms3 12:57 Data reviewed: vital signs, nurses notes, lab test result(s), radiologic studies. ms3 Historians other than the Patient: Parent: Patient's mother. Counseling: I had a detailed discussion with the patient and/or guardian regarding the historical points, exam findings, and any diagnostic results supporting the discharge/admit diagnosis, lab results, radiology results. 13:30 ED course: Discussed case with Dr Orosco at [facility]. 3 options: Expectant management, ms3 Cytotec, or surgery. Discussed with patient and she prefers Cytotec. Will give patient Rx for Cytotec. Patient to follow up with Dr Orosco.. 06/13 09:54 Order name: Basic Metabolic Panel; Complete Time: 11:38 ms3 06/13 09:54 Order name: CBC with Diff; Complete Time: 11:38 ms3 06/13 09:54 Order name: Quantitative Hcg; Complete Time: 11:38 ms3 06/13 09:54 Order name: Urinalysis w/ reflexes; Complete Time: 11:38 ms3 06/13 10:07 Order name: Transvaginal Study Probe; Complete Time: 11:38 EDMS 06/13 09:54 Order name: IV Saline Lock; Complete Time: 10:29 ms3 06/13 09:54 Order name: Labs collected and sent; Complete Time: 10:29 ms3 06/13 09:54 Order name: NPO; Complete Time: 10:04 ms3 Administered Medications: No medications were administered Disposition Summary: 06/13/23 13:32 Discharge Ordered Notes: Location: Home ms3 Condition: Stable(06/13/23 13:32) ms3 Diagnosis - Incomplete spontaneous without complication(06/13/23 13:32) ms3 Followup: ms3 - With: Private Physician - When: 2 - 3 days - Reason: Recheck today's complaints Discharge Instructions: - Discharge Summary Sheet ms3 - Incomplete Miscarriage ms3 Forms: - Medication Reconciliation Form ms3 - Thank You Letter ms3 - Antibiotic Education ms3 - Prescription Opioid Use ms3 - Patient Portal Instructions ms3 - Leadership Thank You Letter ms3 Prescriptions: - Cytotec 200 mcg Oral tablet - take 4 tablet VAGINAL route once; 4 tablet; Refills: 0, Product Selection ms3 Permitted Signatures: Dispatcher [employer] Jeannie Vásquez RN RN ap3 Sundar Olmos DO DO ms3 Corrections: (The following items were deleted from the chart) 10:07 09:54 Pelvis Complete+US.RAD.BRZ ordered. EDMS EDMS 13:31 12:11 Dr ms3 ms3 13:31 12:11 Other Acute Care Facility ms3 ms3 13:31 12:11 Higher level of care ms3 ms3 13:31 12:11 Stable ms3 ms3 13:31 12:11 new ms3 ms3 13:31 12:11 are unchanged ms3 ms3 13:31 12:11 Incomplete spontaneous without complication ms3 ms3
[2023-06-13 15:19] VITALS: BP 112/79; TEMP 98.7; O2SAT 97
== END ==
LOC: ER 09:34
DX: O03.4 Incomplete spontaneous abortion without complication (principal)
CPT/HCPCS: 36415; 76830; 80048; 81003; 84702; 85025